=== PATIENT | female | born 2000 | race American Indian/Alaskan Native ===

== ENCOUNTER 2019-08-23 02:47 | Emergency (ER) | payer SELFPAY ==
[2019-08-23 03:01] VITALS: BP 132/78
[2019-08-23] MEDS ORDERED: ACETAMINOPHEN 325 MG TAB PO ONE (03:01)
--- NOTE | 2019-08-23 03:54 | XRay Report ---
RIGHT ANKLE 3 VIEWS INDICATION / CLINICAL INFORMATION: pain and swelling COMPARISON: None available. FINDINGS: BONES / JOINT(S): No acute fracture or subluxation. No significant arthritis. SOFT TISSUES: No significant abnormality. ADDITIONAL FINDINGS: None. Signer Name: Leon Charlton MD Signed: 08/23/2019 3:49 AM Workstation Name: [id number]
[2019-08-23] MEDS ORDERED: predniSONE 20 MG TAB PO ONE (04:50)
[2019-08-23] MEDS ORDERED: IBUPROFEN 800 MG TAB PO ONE (04:50)
--- NOTE | 2019-08-23 05:18 | Emergency Department Report ---
ED Extremity Problem HPI - General Chief complaint: Extremity Injury, Lower Stated complaint: SWOLLEN,ANKLE Source: patient Mode of arrival: Ambulatory Limitations: No Limitations - History of Present Illness Initial comments: Patient is a 18-year-old -[place] female with no past medical history who presents to the ED with complaint of acute onset persistent severe right ankle and foot pain with swelling after she may have twisted the right ankle and foot 4 days ago. Patient states that she has been going to work and bearing weight on the right foot and that in the last 24 hours, the swelling and the pain have worsened. Patient denies fall, dizziness, numbness and tingling or weakness of lower extremities bilaterally, traumatic injury, low back pain, heavy lifting, fever and chills. Patient states that the pain is worse with bearing weight or ambulation. MD Complaint: extremity pain (right ankle and foot swelling and pain), extremity swelling (Right ankle and foot), joint swelling (right ankle and foot) -: Sudden, days(s) (2) Location: lower extremity (left ankle and foot) History of Same: No -: Yes arthralgia, No fever, No associated dyspnea, No associated chest pain Severity scale (0 -10): 7 Quality: aching, sharp, constant Consistency: constant Improves with: nothing Worsens with: weight bearing, walking, exertion, palpation Associated Symptoms: denies other symptoms, arthralgias. denies: chest pain, shortness of breath, fever, myalgias, rash - Related Data Previous Rx's Medication Instructions Recorded Last Taken Type Ibuprofen [Motrin] 800 mg PO Q8HR PRN #30 tablet 08/23/19 Unknown Rx tiZANidine [Zanaflex 4mg TAB] 4 mg PO Q8H PRN #21 tablet 08/23/19 Unknown Rx traMADoL [Ultram] 50 mg PO Q6HR PRN #12 tablet 08/23/19 Unknown Rx Allergies Allergy/AdvReac Type Severity Reaction Status Date / Time No Known Allergies Allergy Verified 08/23/19 04:51 ED Review of Systems ROS: Stated complaint: SWOLLEN,ANKLE Other details as noted in HPI Constitutional: denies: chills, fever Eyes: denies: eye pain, eye discharge, vision change ENT: denies: ear pain, throat pain Respiratory: denies: cough, shortness of breath, wheezing Cardiovascular: denies: chest pain, palpitations Endocrine: no symptoms reported Gastrointestinal: denies: abdominal pain, nausea, diarrhea Genitourinary: denies: urgency, dysuria, discharge Musculoskeletal: joint swelling (Left ankle and foot swelling), arthralgia (Left ankle and foot pain with swelling), myalgia. denies: back pain Skin: denies: rash, lesions Neurological: denies: headache, weakness, paresthesias Psychiatric: denies: anxiety, depression Hematological/Lymphatic: denies: easy bleeding, easy bruising ED Past Medical Hx - Past Medical History Previous Medical History?: No - Surgical History Past Surgical History?: Yes Additional Surgical History: leg - Social History Smoking Status: Current Every Day Smoker Substance Use Type: Alcohol, Marijuana - Medications Home Medications: Home Medications Medication Instructions Recorded Confirmed Last Taken Type Ibuprofen [Motrin] 800 mg PO Q8HR PRN #30 tablet 08/23/19 Unknown Rx tiZANidine [Zanaflex 4mg TAB] 4 mg PO Q8H PRN #21 tablet 08/23/19 Unknown Rx traMADoL [Ultram] 50 mg PO Q6HR PRN #12 tablet 08/23/19 Unknown Rx ED Physical Exam - General Limitations: No Limitations General appearance: alert, in no apparent distress - Head Head exam: Present: atraumatic, normocephalic, normal inspection - Eye Eye exam: Present: normal appearance, PERRL, EOMI Pupils: Present: normal accommodation - ENT ENT exam: Present: normal orophraynx, mucous membranes moist, TM's normal bilaterally, normal external ear exam - Neck Neck exam: Present: normal inspection, full ROM - Respiratory Respiratory exam: Present: normal lung sounds bilaterally. Absent: respiratory distress, wheezes, rales, chest wall tenderness, decreased breath sounds, prolonged expiratory - Cardiovascular Cardiovascular Exam: Present: regular rate, normal rhythm, normal heart sounds. Absent: systolic murmur, diastolic murmur, rubs, gallop - GI/Abdominal GI/Abdominal exam: Present: soft, normal bowel sounds. Absent: tenderness, hyperactive bowel sounds, hypoactive bowel sounds, organomegaly - Extremities Exam Extremities exam: Present: normal inspection, tenderness (Palpable right ankle and foot tenderness with limited range of motion due to pain), normal capillary refill, joint swelling (Right ankle swelling with tenderness). Absent: full ROM (Limited range of motion of right ankle due to pain) - Back Exam Back exam: Present: normal inspection, full ROM. Absent: tenderness, CVA tenderness (R), CVA tenderness (L), muscle spasm, paraspinal tenderness - Neurological Exam Neurological exam: Present: alert, oriented X3, CN II-XII intact, normal gait, reflexes normal - Psychiatric Psychiatric exam: Present: normal affect, normal mood - Skin Skin exam: Present: warm, dry, intact, normal color. Absent: rash ED Course Vital Signs 08/23/19 08/23/19 02:58 05:06 Temperature 99.1 F Pulse Rate 88 Respiratory 20 18 Rate Blood Pressure 132/78 O2 Sat by Pulse 99 Oximetry ED Medical Decision Making - Radiology Data Radiology results: report reviewed, image reviewed Findings [facility] [address] [id number] XRay Report Signed Patient: CLEMENTINA HOLLIDAY MR# : [id number] : 2000 Acct:[id number] Age/Sex: 18 / F ADM Date: 08/23/19 Loc: ED Attending Dr: Ordering Physician: LISA ARGUETA MD Date of Service: 08/23/19 Procedure(s): XR ankle 3+V RT Accession Number(s): [id number] cc: ED MD KENDALL Fluoro Time In Minutes: RIGHT ANKLE 3 VIEWS INDICATION / CLINICAL INFORMATION: pain and swelling COMPARISON: None available. FINDINGS: BONES / JOINT(S): No acute fracture or subluxation. No significant arthritis. SOFT TISSUES: No significant abnormality. ADDITIONAL FINDINGS: None. Signer Name: Leon Charlton MD Signed: 08/23/2019 3:49 AM Workstation Name: [id number] Transcribed By: SS Dictated By: Leon Charlton MD Electronically Authenticated By: Leon Charlton MD Signed Date/Time: 08/23/199 DD/ 7 TD/TT - Medical Decision Making This is a 18-year-old female who presented to the ED with complaint of worsening right ankle and foot pain with swelling after twisting her right ankle 4 days ago. In the ED, patient is alert and oriented x3 and is not in distress. Right ankle x-ray shows no acute fractures or subluxations. Patient was treated for pain in the ED and the right ankle was splinted with Carmelo wrap and patient discharged home on pain medications and muscle relaxants. Patient was advised to follow-up with her primary care physician in 5 to 7 days for reevaluation or return to the ED immediately if symptoms get worse. - Differential Diagnosis right ankle sprain; Right foot muscle strain; ankle fracture Critical care attestation.: If time is entered above; I have spent that time in minutes in the direct care of this critically ill patient, excluding procedure time. ED Disposition Clinical Impression: Severe sprain of right ankle Qualifiers: Encounter type: initial encounter Qualified Code(s): S93.401A - Sprain of unspecified ligament of right ankle, initial encounter Muscle strain of right foot Qualifiers: Encounter type: initial encounter Qualified Code(s): S96.911A - Strain of unspecified muscle and tendon at ankle and foot level, right foot, initial encounter Disposition: TO HOME OR SELFCARE Is pt being admited?: No Does the pt Need Aspirin: No Condition: Stable Instructions: Muscle Strain (ED), Ankle Sprain (ED) Additional Instructions: The right ankle x-ray shows no acute fractures or subluxations. The pain is likely from ligament injuries and inflammation of the right ankle joint and foot. Therefore take medications with food, drink plenty of fluids and follow- up with your primary care physician in 7 to 10 days for reevaluation. Return to the ED immediately if symptoms get worse. Prescriptions: Ibuprofen [Motrin] 800 mg PO Q8HR PRN #30 tablet PRN Reason: Pain , Severe (7-10) traMADoL [Ultram] 50 mg PO Q6HR PRN #12 tablet PRN Reason: Pain tiZANidine [Zanaflex 4mg TAB] 4 mg PO Q8H PRN #21 tablet PRN Reason: Muscle Spasm Referrals: [facility] [Outside] - 3-5 Days Forms: Work/School Release Form(ED) Time of Disposition: 05:23 Print Language: BOLIVIAN
== END 2019-08-23 05:40 | disposition home or self-care (01) ==
LOC: ED 02:47
DX: S93.401A Sprain of unspecified ligament of right ankle, initial encounter (principal); S96.911A Strain of unspecified muscle and tendon at ankle and foot level, right foot, initial encounter; F12.10 Cannabis abuse, uncomplicated; F17.200 Nicotine dependence, unspecified, uncomplicated; Z79.899 Other long term (current) drug therapy; Z98.890 Other specified postprocedural states; X58.XXXA Exposure to other specified factors, initial encounter; Y93.89 Activity, other specified; Y92.89 Other specified places as the place of occurrence of the external cause; Y99.8 Other external cause status
CPT/HCPCS: 73610; 99284; J7512